=== PATIENT | male | born 1970 | race Caucasian/White ===

== ENCOUNTER 2020-09-13 12:15 | Emergency (ER) | payer BC ==
[~2020-09-13] VITALS: Ht 185.4 cm; Wt 95.3 kg
[2020-09-13 12:15] VITALS: BP_SYST 140
[2020-09-13] MEDS ORDERED: DIPH-TET-PERTUS Vaccine 0.5 ML VIAL (ADACEL) I.M. ONE (13:00)
[2020-09-13 13:21] VITALS: BP_SYST 140
== END 2020-09-13 13:20 | disposition home or self-care (01) ==
LOC: SED 12:15
DX: S60.032A Contusion of left middle finger without damage to nail, initial encounter (principal); W29.3XXA Contact with powered garden and outdoor hand tools and machinery, initial encounter; Y93.89 Activity, other specified; Y92.89 Other specified places as the place of occurrence of the external cause; Y99.8 Other external cause status
CPT/HCPCS: 90715; 99283

== ENCOUNTER 2022-09-08 21:30 | Emergency (ER) | payer BC ==
[~2022-09-08] VITALS: Ht 165.1 cm; Wt 74.8 kg
[2022-09-08 21:30] VITALS: BP_SYST 147
--- NOTE | 2022-09-08 21:30 | NUR ---
Patient to ER bed H2 to gown for evaluation. Side rails up. Report given to Jerry AYALA
--- NOTE | 2022-09-08 21:30 | NUR ---
Dr Campos evaluating patient at bedside
--- NOTE | 2022-09-08 21:30 | NUR ---
Patient arrived to chair 1 for c/o facial weakness left side and leaky eye right that started. He thought it was allergies and it was itchy. Patient said his left side felt more swollen. Dr. Campos came to [facility]SE patient. Patient responsive to verbal instructions. Alert and oriented x4. Respiration even and unlabored. Will continue to monitor. Call light within reach.
[2022-09-08] MEDS ORDERED: predniSONE 20 MG TABLET PO ONE (21:45)
--- NOTE | 2022-09-08 21:46 | NUR ---
informed about patient concerns regarding colonoscopy.
[2022-09-08] MEDS ORDERED: ACYC-133 PO (22:11)
[2022-09-08] MEDS ORDERED: PRED20TA PO (22:11)
--- NOTE | 2022-09-08 22:31 | NUR ---
Patient given written and verbal discharge instructions and verbalizes understanding. ER MD discussed with patient the results and treatment provided. Patient in stable condition. ID arm band removed. IV catheter removed intact and dressing applied, no active bleeding. Rx of MEDS given. Patient educated on pain management and to follow up with PMD. Opportunity for questions provided and answered. Medication side effect fact sheet provided.
[2022-09-08 23:10] VITALS: BP_SYST 134
== END 2022-09-08 23:10 | disposition home or self-care (01) ==
LOC: SED 21:30
DX: G51.0 Bell's palsy (principal); R20.2 Paresthesia of skin; Z79.899 Other long term (current) drug therapy
CPT/HCPCS: 99283; J7512